=== PATIENT | male | born 1960 | race Caucasian/White ===

== ENCOUNTER 2019-06-08 08:28 | Emergency (ER) | payer OTHER ==
[~2019-06-08] VITALS: Ht 154.9 cm; Wt 47.2 kg
[2019-06-08 08:35] VITALS: Ht 154.9 cm; Wt 47.2 kg
[2019-06-08] MEDS ORDERED: ATORVASTATIN CA20 M1 PO (09:14)
[2019-06-08] MEDS ORDERED: ZYLOPRIM100 MG PO (09:14)
[2019-06-08] MEDS ORDERED: NATURE'S BLEND F1 MG PO (09:14)
[2019-06-08] MEDS ORDERED: LASIX40 MG PO (09:15)
[2019-06-08] MEDS ORDERED: LEVAQUIN500 M1 PO (09:15)
[2019-06-08] MEDS ORDERED: CARVEDILOL ER40 MG PO (09:16)
[2019-06-08] MEDS ORDERED: CARVEDILOL25 M1 PO (09:17)
[2019-06-08] MEDS ORDERED: ULTRAM50 MG PO (09:17)
[2019-06-08] MEDS ORDERED: TRELEGY ELLIPT1 EACH IH (09:18)
[2019-06-08] MEDS ORDERED: ALLERGY RELIE15.8 ML (09:19)
[2019-06-08] MEDS ORDERED: ATROVENT H0.017 MG/1 IH (09:20)
[2019-06-08] MEDS ORDERED: [UNRECOGNIZED DRUG - CODE] PO (09:20)
[2019-06-08] MEDS ORDERED: PROAIR HFA8.5 GM (09:21)
[2019-06-08] MEDS ORDERED: NASAL MIST126 ML (09:22)
[2019-06-08 10:43] LABS: BASOPHIL % 0.5 % (0-2); PLATELET COUNT 187 x10^3mcL (130-400)
[2019-06-08 10:47] LABS: CALCIUM 8.3 mg/dL (8.5-10.1); CARBON DIOXIDE 29.9 mmol/L (21-32); CREATININE SERUM 1.6 mg/dL (0.7-1.3); POTASSIUM SERUM 3.6 mmol/L (3.5-5.1)
[2019-06-08 10:58] LABS: RED CELL DISTRIBUTION WIDTH 15.8 % (11.5-14.5)
[2019-06-08 10:59] LABS: T4(THYROXINE) 7.9 ug/dL (4.7-13.3); TOTAL PROTEIN, SERUM 6.4 g/dL (6.4-8.2)
[2019-06-08 12:03] LABS: UA SPECIFIC GRAVITY 1.015 (1.005-1.035); microscopic required? YES; urine erythrocyte 1+ (NEGATIVE)
[2019-06-08 12:25] LABS: AMPHETAMINE QUAL UR NONE DETECTED (See below)
[2019-06-08 14:18] VITALS: BP 113/68
== END 2019-06-08 14:18 | disposition home or self-care (01) ==
LOC: ED 08:28
PROVIDERS: Emergency Medicine
DX: R51 Headache (principal); I11.0 Hypertensive heart disease with heart failure; I50.9 Heart failure, unspecified; J44.9 Chronic obstructive pulmonary disease, unspecified; E78.00 Pure hypercholesterolemia, unspecified; M19.90 Unspecified osteoarthritis, unspecified site; F17.210 Nicotine dependence, cigarettes, uncomplicated; F12.10 Cannabis abuse, uncomplicated; Z88.0 Allergy status to penicillin; Z95.810 Presence of automatic (implantable) cardiac defibrillator; Z86.73 Personal history of transient ischemic attack (TIA), and cerebral infarction without residual deficits
CPT/HCPCS: 83880; 87804; 94150; J2930; J7613; J7644; Q0092